=== PATIENT | male | born 2000 | race Caucasian/White ===

== ENCOUNTER 2022-06-29 15:14 | Emergency (ER) | payer SELFPAY ==
[~2022-06-29] VITALS: Ht 167.6 cm; Wt 65.8 kg
[2022-06-29] MEDS ORDERED: AMOXICILLIN500 M2 PO (15:39)
[2022-06-29] MEDS ORDERED: Motrin,Rufen800 MG PO (15:39)
== END 2022-06-29 15:43 | disposition home or self-care (01) ==
LOC: ED 15:14
DX: K08.89 Other specified disorders of teeth and supporting structures (principal)